=== PATIENT | male | born 1995 | race Caucasian/White ===

== ENCOUNTER 2017-01-04 15:31 | Emergency (ER) | payer MEDICAID, OTHER ==
[~2017-01-04] VITALS: Ht 165.1 cm; Wt 68.0 kg
[2017-01-04 15:56] LABS: BASOPHILS # (AUTO) 0.1 /CMM (0.0-0.2); BASOPHILS % (AUTO) 0.7 % (0.0-2.0); EOSINOPHILS # (AUTO) 0.1 /CMM (0.0-0.7); EOSINOPHILS % (AUTO) 0.9 % (0.0-6.0); HEMATOCRIT 47 % (39-51); HEMOGLOBIN 15.1 g/dL (13.5-17.5); LYMPHOCYTES # (AUTO) 1.5 /CMM (0.8-4.8); LYMPHOCYTES % (AUTO) 19.8 % (20.0-44.0); MEAN CORPUSCULAR HEMOGLOBIN 29 PG (26.0-33.0); MEAN CORPUSCULAR HGB CONC 32 g/dl (31.0-36.0); MEAN CORPUSCULAR VOLUME 90 fL (80-96); MONOCYTES # (AUTO) 0.4 /CMM (0.1-1.30); MONOCYTES % (AUTO) 5.5 % (2.0-12.0); NEUTROPHILS # (AUTO) 5.4 /CMM (1.8-8.9); NEUTROPHILS % (AUTO) 73.1 % (43.0-81.0); PLATELET COUNT (AUTO) 244 /CMM (150-450); RED BLOOD CELL COUNT(AUTO) 5.23 MIL/uL (4.5-6.0); WHITE BLOOD COUNT (AUTO) 7.5 K/uL (4.3-11.0)
[2017-01-04] MEDS ORDERED: ACTIVATED CHARCOAL 25 GM/120 ML TUBE ONE (15:56)
[2017-01-04] MEDS ORDERED: ONDANSETRON HCL/PF 4 MG/2 ML VIAL ONE (15:56)
--- NOTE | 2017-01-04 15:56 | NUR ---
called poison control, they recommended activated charcoal 50 g. and to monitor for respiratory depression.
[2017-01-04] MEDS ORDERED: ONDANSETRON HCL/PF - ER 4 MG/2 ML VIAL IV ONE (16:00)
[2017-01-04] MEDS ORDERED: ACTIVATED CHARCOAL 25 GM/120 ML TUBE PO ONE ×2 (16:00→17:00)
[2017-01-04 16:06] LABS: CALCIUM, SERUM 9.6 mg/dL (8.5-10.1); CARBON DIOXIDE 33 mmol/L (21-32); CHLORIDE 105 mmol/L (98-107); CREATININE 1.3 mg/dL (0.6-1.3); GFR 70 mL/min (>60); GLUCOSE 98 mg/dL (74-106); POTASSIUM 3.6 mmol/L (3.5-5.1); SODIUM SERUM 144 mmol/L (136-145); UREA NITROGEN, BLOOD 8 mg/dL (7-18)
[2017-01-04 16:18] LABS: ALANINE AMINOTRANSFERASE 64 U/L (12-78); ALBUMIN 4.2 g/dL (3.4-5.0); ALCOHOL, BLOOD < 3 mg/dL (0-0); ALKALINE PHOSPHATASE 108 U/L (46-116); ASPARTATE AMINOTRANSFERASE 51 U/L (15-37); BILIRUBIN,DIRECT 0.1 mg/dL (0.0-0.2); BILIRUBIN,TOTAL 0.5 mg/dL (0.2-1.0); TOTAL PROTEIN, SERUM 7.7 g/dL (6.4-8.2)
[2017-01-04 16:20] LABS: ACETAMINOPHEN 0 ug/ml (10-30); SALICYLATE 0.9 mg/dL (2.8-20.0)
[2017-01-04] MEDS ORDERED: IV SET PRIMARY 1 EA INFUS.SET MC ONE (18:01)
[2017-01-04] MEDS ORDERED: IV NS 0.9% 1,000 ML ONE (18:01)
--- NOTE | 2017-01-04 18:10 | NUR ---
PATIENT IS LESS VERBALLY RESPONSIVE, AND MORE LETHARGIC, MD NOTIFIED, STARTED ON NORMAL SALINE 1 LITER, AND PLACED ON 2 L/MIN O2
--- NOTE | 2017-01-04 23:00 | NUR ---
pd has left patient's bedside, patient is verbally responsive, a/o x4, vitals stable.
[2017-01-05 00:17] LABS: APPEARANCE,URINE CLEAR (CLEAR); BILIRUBIN,URINE NEGATIVE (NEGATIVE); BLOOD, URINE NEGATIVE Ery/uL (NEGATIVE); COLOR,URINE YELLOW (YELLOW); KETONES,URINE NEGATIVE (NEGATIVE); LEUKOCYTE ESTERASE ,URINE NEGATIVE (NEGATIVE); NITRITE, URINE NEGATIVE (NEGATIVE); PROTEIN,URINE NEGATIVE (NEGATIVE); UGLUCOSE NEGATIVE (NEGATIVE); UROBILINOGEN,URINE 0.2 EU/dL (0.2)
[2017-01-05 00:29] LABS: PHENCYCLIDINE SCREEN,URINE NEGATIVE (NEGATIVE)
--- NOTE | 2017-01-05 00:30 | NUR ---
Pt removed IV. Catheter intact and site benign. Pressure and 4x4 applied to site. No bleeding noted.
[2017-01-05 00:31] LABS: CANNABINOID, URINE POSITIVE (NEGATIVE)
--- NOTE | 2017-01-05 01:00 | NUR ---
ART CAPILLA, MEDIA SERVICES SPECIALIST AT BEDSIDE FOR PT EVAL.
--- NOTE | 2017-01-05 02:50 | NUR ---
PT PLACED ON 0440 @6532 FOR DTS. PT ACCEPTED AT [facility] BY DR. ARCINIEGA; GOING TO BED 308-1.
--- NOTE | 2017-01-05 03:00 | NUR ---
[facility] CALLED FOR TRANSPORT TO [facility]. ETA: 30-45 MINS
[2017-01-05] MEDS ORDERED: LORAZEPAM INJ 2 MG/ML VIAL ONE ×2 (03:01→03:47)
[2017-01-05 03:05] VITALS: BP 121/64
[2017-01-05] MEDS ORDERED: LORAZEPAM INJ 2 MG/ML VIAL IM ONE ×2 (03:30→04:00)
--- NOTE | 2017-01-05 03:45 | NUR ---
Report given to SHARI Hill at [facility] for pt transfer on 5150 hold for DTS.
== END 2017-01-05 04:24 ==
LOC: ER 15:34
DX: T42.4X2A Poisoning by benzodiazepines, intentional self-harm, initial encounter (principal); R41.82 Altered mental status, unspecified; R45.851 Suicidal ideations; Y92.9 Unspecified place or not applicable
CPT/HCPCS: 36415; 80048-TC; 80076-TC; 80305; 81000-TC; 85025-TC; A4606; G0480; G6039-TC; J2060; J2405; J7030; Z7610